=== PATIENT | female | born 1985 | race Caucasian/White ===

== ENCOUNTER 2018-05-18 08:03 | Emergency (ER) | payer BC ==
[~2018-05-18] VITALS: Ht 170.2 cm; Wt 104.3 kg
[2018-05-18 08:09] VITALS: BP_SYST 137
[2018-05-18 08:57] VITALS: BP_SYST 130
== END 2018-05-18 08:57 | disposition home or self-care (01) ==
LOC: SED 08:03
DX: S93.402A Sprain of unspecified ligament of left ankle, initial encounter (principal); L03.211 Cellulitis of face; X50.9XXA Other and unspecified overexertion or strenuous movements or postures, initial encounter; Y93.89 Activity, other specified; Y92.89 Other specified places as the place of occurrence of the external cause; Y99.8 Other external cause status
CPT/HCPCS: 99284